=== PATIENT | female | born 1970 | race Two or more races ===

== ENCOUNTER 2016-05-20 09:30 | Day surgery (SDC) | payer BC, OTHER ==
--- NOTE | 2016-05-13 13:05 | HISTORY AND PHYSICAL E ---
History and Physical NAME: FRANTZ ESTEVEZ : 1970 AGE: 45Y ADMITTED: 05/20/2016 ROOM: ADMIT DATE: 05/20/2016 CHIEF COMPLAINT: History of colon cancer resected. History of colon resection secondary to right colon cancer. Right colon resection. Patient admitted for colon screening. HISTORY OF PRESENT ILLNESS: Patient presented regarding colon screening. She is for follow-up colonoscopy. The patient did have resection of right colon cancer. She was seen in the year 2013. She does have history of IBS by scope. She did have history of resection secondary to cancer of the right colon. The patient did have right hemicolectomy, Dr. Kern, stage 3, T4N2 circumferential fungating mass. SOCIAL HISTORY: Does not smoke, does not drink. PAST MEDICAL HISTORY: Patient does have gestational diabetes. MEDICATIONS: She takes no medications to date. The patient presented for colon screening. She was treated with Zoloft 25 at bedtime back in 2008. REVIEW OF SYSTEMS: The patient did have colon exam 06/01/2015 which showed no recurrence. Small external hemorrhoids. Small diverticulosis. The patient did have right hemicolectomy. Patient diagnosed with colon cancer 05/2009. The patient's review of systems otherwise negative. PHYSICAL EXAMINATION: VITAL SIGNS: Blood pressure 130/70, pulse 80, respirations 18. Temperature is 98. HEAD, EYES, EARS, NOSE AND THROAT: Normal. NECK: Supple. LUNGS: Clear. ABDOMEN: Soft. NEUROLOGIC EXAM: Negative. DIAGNOSTIC TESTS: The patient is being followed at [place]. The patient did have MRI which was okay. CONCLUSIONS: Colonoscopy, history of colon cancer resected 2009. PLAN: At this time, patient scheduled for follow-up colonoscopy. ADDENDUM: Very pleasant, alert, oriented young female with a history of colon resection in 2009, diagnosed with colonoscopy 05/19/2009. Right hemicolectomy, Dr. Kern. DICTATING PHYSICIAN: TALA RIOS M.D. [id number] PHY#: [id number] ID: [id number] JOB#: [id number] ACCT: [id number] cc:TALA RIOS M.D. >
[2016-05-20] MEDS ORDERED: ONDANSETRON HCL INJ/PF 4 MG/2 ML SDV ONE (09:35)
[2016-05-20] MEDS ORDERED: GLYCOPYRROLATE INJ 0.4 MG/2 ML VIAL ONE (09:35)
[2016-05-20] MEDS ORDERED: PROMETHAZINE HCL INJ 25 MG/1 ML VIAL ONE (09:35)
[2016-05-20] MEDS ORDERED: LIDOCAINE 2% JELLY 30 ML TUBE ONE (09:35)
[2016-05-20] MEDS ORDERED: NALOXONE HCL INJ/PF 0.4 MG/1 ML SDV ONE (09:35)
[2016-05-20] MEDS ORDERED: MIDAZOLAM 2 MG/2 ML INJ ONE (09:36)
[2016-05-20] MEDS ORDERED: GLUCAGON,HUMAN RECOMB 1 MG INJ ONE (09:36)
[2016-05-20] MEDS ORDERED: FLUMAZENIL INJ 0.5 MG/5 ML VIAL IV ONE (09:36)
[2016-05-20] MEDS ORDERED: EPINEPHRINE INJ 1 MG/10 ML DISP.SYRIN ONE (09:36)
[2016-05-20] MEDS: MIDAZOLAM 2 MG/2 ML INJ ONE ×2 (10:14→10:24)
[2016-05-20] MEDS: FENTANYL CITRATE INJ/PF 100 MCG/2 ML AMPUL ONE ×2 (10:16→10:22)
[2016-05-20 11:34] LABS: ABSOLUTE BASOPHILS # (AUTO) 0.1 10^3/uL (0.0-0.2); ABSOLUTE MONOCYTES (AUTO) 0.5 10^3/uL (0.1-1.4); ABSOLUTE NEUT (AUTO) 4.4 10^3/uL (1.7-8.2); BASOPHILS % (AUTO) 0.9 % (0-2); EOSINOPHILS % (AUTO) 0.8 % (0-6); HEMATOCRIT 42.8 % (36.0-47.0); HEMOGLOBIN 13.1 g/dL (12.0-15.5); HGB HCT DIFFERENCE -3.5; LYMPHOCYTES % (AUTO) 17.1 % (13-45); MEAN CORPUSCULAR HEMOGLOBIN 24.1 pg (27.0-33.4); MEAN CORPUSCULAR HGB CONC 30.7 g/dL (32.0-36.0); MEAN CORPUSCULAR VOLUME 78 fl (80-97); MONOCYTES % (AUTO) 8.5 % (3-13); RED BLOOD COUNT 5.46 10^6/uL (3.72-5.28); RED CELL DISTRIBUTION WIDTH 14.9 % (11.5-14.0); SEGMENTED NEUTROPHILS % (AUTO) 72.7 % (42-78); WHITE BLOOD COUNT 6.1 10^3/uL (4.0-10.5)
[2016-05-20 11:37] VITALS: BP 132/87
[2016-05-20 11:55] LABS: ALANINE AMINOTRANSFERASE 45 U/L (9-52); ALBUMIN 4.1 g/dL (3.5-5.0); ALKALINE PHOSPHATASE 67 U/L (38-126); ANION GAP 12 (5-19); ASPARTATE AMINO TRANSFERASE 28 U/L (14-36); BILIRUBIN,TOTAL 0.5 mg/dL (0.2-1.3); BLOOD UREA NITROGEN 17 mg/dL (7-20); CALCIUM 8.7 mg/dL (8.4-10.2); CARBON DIOXIDE 24 mmol/L (22-30); CHLORIDE 103 mmol/L (98-107); CREATININE RESULT 0.66 mg/dL (0.52-1.25); GLUCOSE 182 mg/dL (75-110); POTASSIUM 3.9 mmol/L (3.6-5.0); SODIUM 139.2 mmol/L (137-145); TOTAL PROTEIN 7.2 g/dL (6.3-8.2)
[2016-05-20 12:26] LABS: CARCINOEMBRYONIC ANTIGEN 0.8 ng/mL (<3.0)
--- NOTE | 2016-05-20 13:30 | DISCHARGE SUMMARY E ---
Discharge Summary NAME: FRANTZ ESTEVEZ : 1970 AGE: 45Y ADMITTED: 05/20/2016 DISCHARGED: HOSPITAL COURSE: The patient is 45 and underwent right colon resection back in 2008. The patient was diagnosed with colon cancer in 2009, right hemicolectomy. Today's followup colon shows no recurrence, patent anastomosis, sigmoid diverticulosis, external hemorrhoids, diminutive anal polyp, 1 mm smooth to biopsy. DISCHARGE PLAN: Soft diet. Baseline CBC. . Followup office visit in the next few days. DICTATING PHYSICIAN: TALA RIOS M.D. [id number] PHY#: [id number] ID: [id number] JOB#: [id number] ACCT: [id number] cc:TALA RIOS M.D. >
--- NOTE | 2016-05-20 13:32 | OPERATIVE REPORT E ---
Operative Report NAME: FRANTZ ESTEVEZ : 1970 AGE: 45Y DATE OF SURGERY: 05/20/2016 ROOM: PREOPERATIVE DIAGNOSIS: History of colon cancer, right colon resection. POSTOPERATIVE DIAGNOSES: 1. Anastomosis patent, no recurrence. 2. Sigmoid and descending colon diverticulosis. 3. External hemorrhoids. 4. Diminutive 1-mm polyp at the anal verge. PROCEDURE: Colonoscopy. SURGEON: TALA RIOS M.D. ANESTHESIA: Versed 6 mg and Fentanyl 125 mcg. TISSUE REMOVED OR ALTERED: None. PROCEDURE: Rectal exam: External hemorrhoids, 1-mm anal verge polyp small to biopsy, sigmoid diverticulosis. Descending colon normal. Transverse colon normal. Ascending colon resected, anastomosis patent, no evidence of recurrence. Scope withdrawn from anastomosis, transverse, descending and sigmoid all the way to the rectum. CONCLUSIONS: 1. Anal polyp, 1 mm, small to biopsy. 2. External hemorrhoids. 3. Sigmoid diverticulosis. 4. Hemicolectomy, right colon, with no recurrence. PLAN: 1. Soft diet today. 2. Baseline CBC and CEA. 3. Follow-up office visit in the next few days. DICTATING PHYSICIAN: TALA RIOS M.D. [id number] PHY#: [id number] ID: [id number] JOB#: [id number] ACCT: [id number] cc:TALA RIOS M.D. >
== END 2016-05-20 11:35 | disposition home or self-care (01) ==
LOC: END 09:30
PROVIDERS: ATTEND Specialist
PROC: 0DJD8ZZ Inspection of Lower Intestinal Tract, Via Natural or Artificial Opening Endoscopic (ICD-10-PCS; principal; 2016-05-20 10:00)
DX: K57.30 Diverticulosis of large intestine without perforation or abscess without bleeding (principal); K64.4 Residual hemorrhoidal skin tags; K62.0 Anal polyp; Z85.038 Personal history of other malignant neoplasm of large intestine; Z90.49 Acquired absence of other specified parts of digestive tract
CPT/HCPCS: 45378; 36415; 82378; 85025; 80053; J2250; J3010; J1610; J2405; J0171; J2310; J2550; J3490

== ENCOUNTER 2018-07-21 00:50 | Emergency (ER) | payer BC ==
--- NOTE | 2018-07-21 00:51 | ER Document Report ---
ED Medical Screen (RME) - General Stated Complaint: CHEST PAIN Time Seen by Provider: 07/21/18 00:50 Primary Care Provider: NBA SKAGGS MD [Primary Care Provider] - Follow up as needed Information source: Patient Notes: PATIENT PRESENTS WITH CP THAT STARTED AT [address] HAS A LITTLE COUGH, PERKINS, REPORTS SHE FEELS LIKE HER FACE IS ON FIRE DENIES H CAD, I have greeted and performed a rapid initial assessment of this patient. A comprehensive ED assessment and evaluation of the patient, analysis of test results and completion of the medical decision making process will be conducted by additional ED providers. TRAVEL OUTSIDE OF THE [place] IN LAST 30 DAYS: No - Related Data Allergies/Adverse Reactions: oxaliplatin [Oxaliplatin] Allergy (Severe, Verified 05/20/16 09:40) Anaphylaxis aspirin [Aspirin] Allergy (Mild, Verified 05/20/16 09:40) itching, sneezing Past Medical History - Past Medical History Cardiac Medical History: Denies: Hx Coronary Artery Disease, Hx Heart Attack, Hx Hypertension Pulmonary Medical History: Denies: Hx Asthma, Hx Bronchitis, Hx COPD, Hx Pneumonia Neurological Medical History: Denies: Hx Cerebrovascular Accident, Hx Seizures Musculoskeltal Medical History: Denies Hx Arthritis Past Surgical History: Denies: Hx Hysterectomy, Hx Pacemaker - Immunizations Hx Diphtheria, Pertussis, Tetanus Vaccination: No Physical Exam - Vital signs Vitals: Temp Pulse Resp BP Pulse Ox 98.4 F 79 20 167/100 H 98 07/21/18 01:08 07/21/18 01:08 07/21/18 01:08 07/21/18 01:08 07/21/18 01:08 Course - Vital Signs Vital signs: Temp Pulse Resp BP Pulse Ox 98.4 F 79 20 167/100 H 98 07/21/18 01:08 07/21/18 01:08 07/21/18 01:08 07/21/18 01:08 07/21/18 01:08 - Laboratory Result Diagrams: 07/21/18 01:00 07/21/18 01:00 Doctor's Discharge - Discharge Referrals: NBA SKAGGS MD [Primary Care Provider] - Follow up as needed
[2018-07-21 01:17] VITALS: BP 167/100
[2018-07-21 01:18] LABS: ABSOLUTE BASOPHILS # (AUTO) 0.1 10^3/uL (0.0-0.2); ABSOLUTE EOSINOPHILS # (AUTO) 0.2 10^3/uL (0.0-0.6); ABSOLUTE LYMPHOCYTES (AUTO) 2.6 10^3/uL (0.5-4.7); ABSOLUTE MONOCYTES (AUTO) 0.9 10^3/uL (0.1-1.4); ABSOLUTE NEUT (AUTO) 3.4 10^3/uL (1.7-8.2); BASOPHILS % (AUTO) 0.8 % (0-2); EOSINOPHILS % (AUTO) 2.2 % (0-6); HEMATOCRIT 41.5 % (36.0-47.0); HEMOGLOBIN 13.9 g/dL (12.0-15.5); LYMPHOCYTES % (AUTO) 36.9 % (13-45); MEAN CORPUSCULAR HEMOGLOBIN 27.4 pg (27.0-33.4); MEAN CORPUSCULAR HGB CONC 33.5 g/dL (32.0-36.0); MEAN CORPUSCULAR VOLUME 82 fl (80-97); MONOCYTES % (AUTO) 12.7 % (3-13); PLATELET COUNT 262 10^3/uL (150-450); RED BLOOD COUNT 5.08 10^6/uL (3.72-5.28); RED CELL DISTRIBUTION WIDTH 13.7 % (11.5-14.0); SEGMENTED NEUTROPHILS % (AUTO) 47.4 % (42-78); TOTAL CELLS COUNTED % (AUTO) 100 %; WHITE BLOOD COUNT 7.1 10^3/uL (4.0-10.5)
[2018-07-21 01:29] LABS: ALANINE AMINOTRANSFERASE 41 U/L (9-52); ALBUMIN 4.6 g/dL (3.5-5.0); ALKALINE PHOSPHATASE 80 U/L (38-126); ANION GAP 11 (5-19); ASPARTATE AMINO TRANSFERASE 30 U/L (14-36); BILIRUBIN,DIRECT 0.1 mg/dL (0.0-0.4); BILIRUBIN,TOTAL 0.4 mg/dL (0.2-1.3); BLOOD UREA NITROGEN 14 mg/dL (7-20); CALCIUM 9.3 mg/dL (8.4-10.2); CARBON DIOXIDE 22 mmol/L (22-30); CHLORIDE 107 mmol/L (98-107); CREATINE KINASE 119 U/L (30-135); GLUCOSE 101 mg/dL (75-110); TOTAL PROTEIN 7.3 g/dL (6.3-8.2)
[2018-07-21 01:41] LABS: CREATINE KINASE MB 0.25 ng/mL (<4.55)
[2018-07-21 01:42] LABS: TROPONIN I < 0.012 ng/mL
--- NOTE | 2018-07-21 02:17 | RADIOLOGY REPORT (SQ) ---
CLINICAL HISTORY: CP COMPARISON: None. TECHNIQUE: XR CHEST 2 VIEWS 07/21/2018 12:54 AM CDT FINDINGS: Cardiac silhouette is normal in size. Lungs are clear without consolidation, atelectasis, mass or edema. There is no pleural effusion. There is no pneumothorax. There are no acute osseous findings. IMPRESSION: Clear lungs.
--- NOTE | 2018-07-21 07:41 | EKG REPORT ---
SEVERITY:- NORMAL ECG - SINUS RHYTHM : Confirmed by: Alberto Saldaña MD 21-Jul-2018 07:40:41
== END 2018-07-21 03:41 | disposition left against medical advice (07) ==
LOC: ER 00:50
DX: R07.9 Chest pain, unspecified (principal); R05 Cough; R51 Headache; Z88.8 Allergy status to other drugs, medicaments and biological substances; Z88.6 Allergy status to analgesic agent; Z53.20 Procedure and treatment not carried out because of patient's decision for unspecified reasons
CPT/HCPCS: 36415; 71046; 80053; 82550; 82553; 84484; 85025; 93005; 93010; 99281

== ENCOUNTER 2019-11-21 11:06 | Emergency (ER) | payer BC, OTHER ==
--- NOTE | 2019-11-21 11:22 | ER Document Report ---
ED Medical Screen (RME) - General Chief Complaint: Chest Tightness Stated Complaint: ANXIETY/WEAKNESS Time Seen by Provider: 11/21/19 11:12 Primary Care Provider: NBA SKAGGS MD [Primary Care Provider] - Follow up as needed Mode of Arrival: Ambulatory Information source: Patient Notes: 48-year-old female presents to ED for chest tightness and numbness radiating to the back of the neck and up to the head. She states she knows she has anxiety and panic attacks and she has a history of colon cancer 10 years ago but this is not her usual anxiety symptoms. Was brought in by EMS. She states last menstrual period was November 15. She is allergic to aspirin so I cannot give her aspirin. Patient is alert oriented respirations regular nonlabored able to answ er all questions appropriately. I have greeted and performed a rapid initial assessment of this patient. A comprehensive ED assessment and evaluation of the patient, analysis of test results and completion of medical decision making process will be conducted by an additional ED providers. TRAVEL OUTSIDE OF THE [place] IN LAST 30 DAYS: No - Related Data Allergies/Adverse Reactions: oxaliplatin [Oxaliplatin] Allergy (Severe, Verified 05/20/16 09:40) Anaphylaxis aspirin [Aspirin] Allergy (Mild, Verified 05/20/16 09:40) itching, sneezing Past Medical History - Past Medical History Cardiac Medical History: Denies: Hx Coronary Artery Disease, Hx Heart Attack, Hx Hypertension Pulmonary Medical History: Denies: Hx Asthma, Hx Bronchitis, Hx COPD, Hx Pneumonia Neurological Medical History: Denies: Hx Cerebrovascular Accident, Hx Seizures Musculoskeltal Medical History: Denies Hx Arthritis Past Surgical History: Denies: Hx Hysterectomy, Hx Pacemaker - Immunizations Hx Diphtheria, Pertussis, Tetanus Vaccination: No Physical Exam - Vital signs Vitals: Temp Pulse Resp BP Pulse Ox 98.5 F 76 18 174/108 H 100 11/21/19 11:14 11/21/19 11:14 11/21/19 11:14 11/21/19 11:14 11/21/19 11:14 Course - Vital Signs Vital signs: Temp Pulse Resp BP Pulse Ox 98.5 F 76 18 174/108 H 100 11/21/19 11:14 11/21/19 11:14 11/21/19 11:14 11/21/19 11:14 11/21/19 11:14 Doctor's Discharge - Discharge Referrals: NBA SKAGGS MD [Primary Care Provider] - Follow up as needed
[2019-11-21 11:51] LABS: ABSOLUTE BASOPHILS # (AUTO) 0.1 10^3/uL (0.0-0.2); ABSOLUTE EOSINOPHILS # (AUTO) 0.1 10^3/uL (0.0-0.6); ABSOLUTE LYMPHOCYTES (AUTO) 1.9 10^3/uL (0.5-4.7); ABSOLUTE MONOCYTES (AUTO) 0.5 10^3/uL (0.1-1.4); ABSOLUTE NEUT (AUTO) 2.7 10^3/uL (1.7-8.2); BASOPHILS % (AUTO) 1.2 % (0-2); EOSINOPHILS % (AUTO) 1.3 % (0-6); HEMATOCRIT 40.8 % (36.0-47.0); HEMOGLOBIN 13.4 g/dL (12.0-15.5); LYMPHOCYTES % (AUTO) 36.2 % (13-45); MEAN CORPUSCULAR HEMOGLOBIN 25.7 pg (27.0-33.4); MEAN CORPUSCULAR HGB CONC 32.8 g/dL (32.0-36.0); MEAN CORPUSCULAR VOLUME 78 fl (80-97); MONOCYTES % (AUTO) 10.5 % (3-13); PLATELET COUNT 282 10^3/uL (150-450); RED CELL DISTRIBUTION WIDTH 14.9 % (11.5-14.0); SEGMENTED NEUTROPHILS % (AUTO) 50.8 % (42-78); TOTAL CELLS COUNTED % (AUTO) 100 %; WHITE BLOOD COUNT 5.3 10^3/uL (4.0-10.5)
--- NOTE | 2019-11-21 12:03 | RADIOLOGY REPORT (SQ) ---
EXAM DESCRIPTION: CHEST 2 VIEWS IMAGES COMPLETED DATE/TIME: 11/21/2019 11:50 am REASON FOR STUDY: Chest tightness and numbness radiates to head and COMPARISON: 07/21/2018. EXAM PARAMETERS: NUMBER OF VIEWS: two views TECHNIQUE: Digital Frontal and Lateral radiographic views of the chest acquired. RADIATION DOSE: NA LIMITATIONS: none FINDINGS: LUNGS AND PLEURA: No opacities, masses or pneumothorax. No pleural effusion. MEDIASTINUM AND HILAR STRUCTURES: No masses or contour abnormalities. HEART AND VASCULAR STRUCTURES: Heart normal size. No evidence for failure. BONES: No acute findings. HARDWARE: None in the chest. OTHER: No other significant finding. IMPRESSION: NO ACUTE RADIOGRAPHIC FINDING IN THE CHEST. TECHNICAL DOCUMENTATION: JOB ID: [id number] 2010 [employer]- All Rights Reserved Reading location - IP/workstation name: [email or web address]
[2019-11-21 12:23] LABS: ALBUMIN 4.6 g/dL (3.5-5.0); ALKALINE PHOSPHATASE 69 U/L (38-126); ANION GAP 7 (5-19); ASPARTATE AMINO TRANSFERASE 33 U/L (14-36); BILIRUBIN,TOTAL 0.5 mg/dL (0.2-1.3); BLOOD UREA NITROGEN 15 mg/dL (7-20); CALCIUM 9.4 mg/dL (8.4-10.2); CARBON DIOXIDE 28 mmol/L (22-30); CHLORIDE 103 mmol/L (98-107); CREATINE KINASE 149 U/L (30-135); GLUCOSE 107 mg/dL (75-110); POTASSIUM 4.3 mmol/L (3.6-5.0); TOTAL PROTEIN 7.8 g/dL (6.3-8.2)
--- NOTE | 2019-11-21 13:27 | EKG REPORT ---
SEVERITY:- ABNORMAL ECG - SINUS RHYTHM MULTIPLE VENTRICULAR PREMATURE COMPLEXES BORDERLINE T ABNORMALITIES, ANTERIOR LEADS : Confirmed by: Sebastian Chaudhry MD 21-Nov-2019 13:25:34
[2019-11-21 15:17] LABS: APPEARANCE,URINE CLEAR; BILIRUBIN,URINE NEGATIVE (NEGATIVE); COLOR,URINE STRAW; GLUCOSE, URINE NEGATIVE (NEGATIVE); KETONES,URINE TRACE mg/dL (NEGATIVE); PROTEIN,URINE NEGATIVE (NEGATIVE); UROBILINOGEN,URINE NEGATIVE mg/dL (<2.0)
--- NOTE | 2019-11-21 16:19 | ER Document Report ---
ED General - General Chief Complaint: Chest Tightness Stated Complaint: ANXIETY/WEAKNESS Time Seen by Provider: 11/21/19 11:12 Primary Care Provider: NBA SKAGGS MD [Primary Care Provider] - Follow up as needed Mode of Arrival: Ambulatory TRAVEL OUTSIDE OF THE [place] IN LAST 30 DAYS: No - HPI Notes: Patient is a 48-year-old female who presents to the emergency department for evaluation of chest tightness with radiation into the posterior aspect of her neck, shortness of breath, nausea, diaphoresis, palpitations, near syncope. He states this is been going on for about a month, but it seems to be worsening. She states she checks her blood pressure which is high, then she feels worse. The symptoms are not brought about by exertion. They are not relieved by rest. She states the last several minutes to several hours. Her primary care provider diagnosed her with anxiety. He prescribed Celexa, as well as as needed metoprolol for when she reads her blood pressure and finds that it is high. She is not yet taken either of these medications. She states she has had similar symptoms in the past, again diagnosed as anxiety, and she took the Celexa for approximately 1 week. She states she did not like the way it made her feel, so she stopped taking it. - Related Data Allergies/Adverse Reactions: oxaliplatin [Oxaliplatin] Allergy (Severe, Verified 11/21/19 14:16) Anaphylaxis aspirin [Aspirin] Allergy (Mild, Verified 11/21/19 14:16) itching, sneezing Home Medications: Metoprolol, Citalopram-not yet started Past Medical History - General Information source: Patient - Social History Smoking Status: Never Smoker Family History: Reviewed & Not Pertinent - Past Medical History Cardiac Medical History: Denies: Hx Coronary Artery Disease, Hx Heart Attack, Hx Hypertension Pulmonary Medical History: Denies: Hx Asthma, Hx Bronchitis, Hx COPD, Hx Pneumonia Neurological Medical History: Denies: Hx Cerebrovascular Accident, Hx Seizures Malignancy Medical History: Reports: Hx Colorectal Cancer GI Medical History: Reports: Hx Colonoscopy Musculoskeletal Medical History: Denies Hx Arthritis Psychiatric Medical History: Reports: Hx Depression Past Surgical History: Reports: Hx Bowel Surgery - Resection. Denies: Hx Hysterectomy, Hx Pacemaker - Immunizations Hx Diphtheria, Pertussis, Tetanus Vaccination: No Review of Systems - Review of Systems Cardiovascular: See HPI Respiratory: See HPI Gastrointestinal: See HPI -: Yes All other systems reviewed and negative Physical Exam - Vital signs Vitals: Temp Pulse Resp BP Pulse Ox 98.5 F 76 18 174/108 H 100 11/21/19 11:14 11/21/19 11:14 11/21/19 11:14 11/21/19 11:14 11/21/19 11:14 - Notes Notes: This is a very pleasant 48-year-old female who appears her stated age. She is extremely anxious, intermittently tearful. Vital signs reviewed, please refer to chart. Head is normocephalic, atraumatic. Pupils equal round, reactive to light. Neck is supple without meningismus. Heart is regular rate and rhythm. Lungs are clear to auscultation bilaterally. Abdomen is soft, nontender, normoactive bowel sounds throughout. Extremities without cyanosis, clubbing. Posterior calves are nontender. Peripheral pulses are equal. Skin is warm and dry. Patient is awake, alert, neurological exam is nonfocal. Course - Re-evaluation Re-evalutation: 11/21/19 16:22 Patient presents to the emergency department for evaluation. She has chest pain with multiple associated symptoms. She has been seen by her primary care provider. She has been told these are anxiety attacks in the past, but she is concerned about her blood pressure being elevated. Despite this, however, she has not yet started the blood pressure medication as prescribed. She has significant anxiety around her prior health history. She has anxiety about her blood pressure, anxieties about being a burden to her children and her . We talked at great length. I encouraged her to follow-up with primary care as scheduled. I encouraged her to start therapy, and in efforts to relieve her anxiety. She seemed amenable to this. Otherwise, she was placed on a front desk monitor and had laboratory investigations as ordered. Her blood pressure was elevated, but otherwise her heart rate was in the 70s and 80s. She is oxygenating well. Her work-up here revealed no significant abnormalities. She is to return to the emergency department for worsening or new concerning symptoms, otherwise follow-up with primary care as discussed. - Vital Signs Vital signs: Temp Pulse Resp BP Pulse Ox 98.5 F 76 16 137/105 H 99 11/21/19 11:14 11/21/19 11:14 11/21/19 15:02 11/21/19 15:02 11/21/19 15:02 - Laboratory Result Diagrams: 11/21/19 11:40 11/21/19 11:40 Laboratory results interpreted by me: 11/21/19 11/21/19 11/21/19 11:40 11:40 14:55 MCV 78 L MCH 25.7 L RDW 14.9 H Creatine Kinase 149 H Urine Ketones TRACE H Urine Blood SMALL H - Diagnostic Test Radiology reviewed: Reports reviewed Radiology results interpreted by me: 11/21/19 16:24 Chest X-Ray 11/21/19 11:19 IMPRESSION: NO ACUTE RADIOGRAPHIC FINDING IN THE CHEST. - EKG Interpretation by Me Additional EKG results interpreted by me: 11/21/19 16:26 Sinus mechanism with a rate of 72 bpm, PVCs noted. Normal axis and intervals. Nonspecific ST changes, but no acute ST elevations concerning for infarction. Discharge - Discharge Clinical Impression: Generalized anxiety disorder with panic attacks Hypertension Qualifiers: Hypertension type: unspecified Qualified Code(s): I10 - Essential (primary) hypertension Condition: Stable Disposition: HOME, SELF-CARE Instructions: Anxiety ([facility]) Additional Instructions: Please consider starting the medication as prescribed by your primary care provider. Follow-up with him next week as scheduled. If you develop worsening or new concerning symptoms of any sort, return immediately to the emergency department for evaluation. Referrals: NBA SKAGGS MD [Primary Care Provider] - Follow up as needed
[2019-11-21 16:56] VITALS: BP 142/98
== END 2019-11-21 16:56 | disposition home or self-care (01) ==
LOC: ER 11:06
DX: F41.9 Anxiety disorder, unspecified (principal); F41.0 Panic disorder [episodic paroxysmal anxiety]; R53.1 Weakness; R07.9 Chest pain, unspecified; I10 Essential (primary) hypertension
CPT/HCPCS: 36415; 71046; 80053; 81001; 82550; 83690; 84484; 84703; 85025; 93005; 93010; 99284